=== PATIENT | male | born 1985 | race American Indian/Alaskan Native ===

== ENCOUNTER 2017-07-21 16:06 | Emergency (ER) | payer OTHER ==
[2017-07-21 16:26] VITALS: RESP 18; TEMP 98.6
[2017-07-21] MEDS ORDERED: Morphine 2 mg/ml ISec IVP STA (16:28)
[2017-07-21] MEDS ORDERED: TDAP Vaccine 0.5 mL Syr IM ONE (16:29)
[2017-07-21] MEDS ORDERED: Sodium Chloride 0.9% 1,000 ML IV STA (16:29)
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
[2017-07-21] MEDS ORDERED: ceFAZolin 1 gm in NS 1 GM/100 ML BAG IVPB ONE (16:45)
[2017-07-21] MEDS ORDERED: Iohexol 350 MG/100 ML VIAL ONE (16:46)
[2017-07-21 17:45] LABS: BASO # 0.04 K/mm3 (0.0-2.0); BASO % 0.4 % (0.0-3.0); EOS # 0.2 (0.0-0.7); EOS % 1.9 % (1.5-5.0); GRAN # 6.73 (1.4-6.5); GRAN % 69.7 % (50.0-68.0); HEMATOCRIT 46.5 % (42.0-52.0); LYMPH # 2.3 (1.2-3.4); LYMPH % 24.2 % (22.0-35.0); MEAN CORPUSCULAR HEMOGLOBIN 28.3 pg (25.0-35.0); MEAN CORPUSCULAR HGB CONC 33.3 g/dl (31.0-37.0); MEAN PLATELET VOLUME 12.9 fl (7.0-11.0); MONO # 0.4 (0.1-0.6); MONO % 3.8 % (1.0-6.0); WHITE BLOOD COUNT 9.7 10^3/ul (4.5-11.0)
[2017-07-21 17:49] LABS: ALB/GLOB RATIO 1.4 (1.1-1.8); ALKALINE PHOSPHATASE 70 U/L (38-126); ALT/SGPT 29 U/L (7-56); AST/SGOT 32 U/L (17-59); BILIRUBIN,TOTAL 0.7 mg/dL (0.2-1.3); BLOOD UREA NITROGEN 10 mg/dL (7-21); CALCIUM 9.6 mg/dL (8.4-10.5); CARBON DIOXIDE 27 mmol/L (21-33); CHLORIDE 105 mmol/L (98-107); GFR AFRICAN-AMERICAN > 60; GLUCOSE,RANDOM 91 mg/dL (70-110); POTASSIUM 3.8 mmol/L (3.6-5.0); SODIUM 143 mmol/L (132-148); TOTAL PROTEIN 7.8 g/dL (5.8-8.3)
[2017-07-21 17:57] LABS: INR 1.07 (0.93-1.08); PARTIAL THROMBOPLASTIN TIME 33.3 Seconds (25.1-36.5)
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
[2017-07-21 20:39] VITALS: BP 138/80; PULSE 85; O2SAT 98
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
== END 2017-07-21 20:42 | disposition home or self-care (01) ==
LOC: ED 16:06
DX: S81.811A Laceration without foreign body, right lower leg, initial encounter (principal); X99.8XXA Assault by other sharp object, initial encounter; Y92.89 Other specified places as the place of occurrence of the external cause
CPT/HCPCS: 12002; 71010; 73590; 73701; 80053; 80320; 85025; 85610; 85730; 90471; 90715; 96365; 96375; 99283; J0690; J2270; J7040; Q9967

== ENCOUNTER 2017-07-31 14:13 | Emergency (ER) | payer OTHER ==
[2017-07-31 14:46] VITALS: BP 136/83; PULSE 90; RESP 17; TEMP 97.8; O2SAT 100
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
== END 2017-07-31 16:11 | disposition home or self-care (01) ==
LOC: ED 14:13
DX: Z48.02 Encounter for removal of sutures (principal)

== ENCOUNTER 2017-12-31 18:56 | Emergency (ER) | payer OTHER ==
[2017-12-31 19:43] VITALS: RESP 18; TEMP 98.3
[2017-12-31] MEDS ORDERED: Penicillin G Benzathine 2.4 Mill Unit/4 ml Syr IM ONE (20:12)
[2017-12-31] MEDS ORDERED: cefTRIAXone (Rocephin) 250 mg Inj IM STA (20:12)
--- NOTE | 2017-12-31 20:20 | ED PDOC ---
Arrival/HPI <Royer Land - Last Filed: 01/01/18 01:56> - General Historian: Patient - History of Present Illness Time/Duration: Prior to Arrival Symptom Onset: Gradual Symptom Course: Unchanged <Jigar Jack - Last Filed: 01/01/18 02:22> - General Chief Complaint: Male Genitourinary Time Seen by Provider: 12/31/17 19:17 - History of Present Illness Narrative History of Present Illness (Text): 12/31/17 21:13 Patient is a 32 M with history of asthma presents with complaints of dysuria, penile abrasions, and sore throat. Patient endorses he had unprotected sex and was then disclosed to him after that she tested positive for chlamydia, gonorrhea, and trichimonas vaginitis. Denies penile discharge, fevers, chills, groin lymphadenopathy, hematuria, bleeding sores. (Jigar Jack) Past Medical History - Provider Review Nursing Documentation Reviewed: Yes - Infectious Disease Hx of Infectious Diseases: None - Cardiac Hx Cardiac Disorders: No - Pulmonary Hx Respiratory Disorders: Yes Hx Asthma: Yes - Neurological Hx Neurological Disorder: No - HEENT Hx HEENT Disorder: No - Renal Hx Renal Disorder: No - Endocrine/Metabolic Hx Endocrine Disorders: No - Hematological/Oncological Hx Blood Disorders: No - Integumentary Hx Dermatological Disorder: No - Musculoskeletal/Rheumatological Hx Musculoskeletal Disorders: No - Gastrointestinal Hx Gastrointestinal Disorders: No - Genitourinary/Gynecological Hx Genitourinary Disorders: No - Psychiatric Hx Psychophysiologic Disorder: No Hx Substance Use: No - Anesthesia Hx Anesthesia: No <Jigar Jack - Last Filed: 01/01/18 02:22> Family/Social History - Physician Review Nursing Documentation Reviewed: Yes Family/Social History: Other (non-contributory) Smoking Status: Light Smoker < 10 Cigarettes Daily Hx Alcohol Use: No Hx Substance Use: No <Jigar Jack - Last Filed: 01/01/18 02:22> Allergies/Home Meds <Royer Land - Last Filed: 01/01/18 01:56> <Jigar Jack - Last Filed: 01/01/18 02:22> Allergies/Adverse Reactions: Allergies shellfish derived Adverse Reaction (Verified 12/31/17 19:45) SWELLING Review of Systems - Physician Review All systems were reviewed & negative as marked: Yes - Review of Systems Constitutional: Normal. absent: Fevers Respiratory: Normal. absent: SOB, Cough Cardiovascular: Normal. absent: Chest Pain, Palpitations Gastrointestinal: Nausea. absent: Abdominal Pain, Diarrhea, Vomiting Genitourinary Male: Dysuria. absent: Normal Musculoskeletal: Normal. absent: Arthralgias, Back Pain Skin: Skin Lesions (penile (shaft)) Neurological: Normal. absent: Headache, Dizziness Endocrine: Normal Hemo/Lymphatic: Normal Psychiatric: Normal <Jigar Jack - Last Filed: 01/01/18 02:22> Physical Exam Vital Signs Reviewed: Yes Temperature: Afebrile Blood Pressure: Normal Pulse: Regular Respiratory Rate: Normal Appearance: Positive for: Well-Appearing, Non-Toxic, Comfortable Pain Distress: None Mental Status: Positive for: Alert and Oriented X 3 - Systems Exam Head: Present: Atraumatic, Normocephalic Pupils: Present: PERRL Extroacular Muscles: Present: EOMI Conjunctiva: Present: Normal Mouth: Present: Moist Mucous Membranes Pharnyx: Present: ERYTHEMA, EXUDATE. No: Uvular Deviation Neck: Present: Normal Range of Motion Respiratory/Chest: Present: Clear to Auscultation. No: Respiratory Distress, Wheezes, Decreased Breath Sounds, Rhonchi Cardiovascular: Present: Regular Rate and Rhythm, Normal S1, S2 Abdomen: No: Tenderness Genitourinary Male: Present: Lesions (2 on shaft of penis). No: Normal External Genitalia, Penile Discharge, Testicle Tenderness, Penile Swelling, Erythema, Testicle Swelling Upper Extremity: Present: Normal Inspection, Edema Lower Extremity: Present: Normal Inspection. No: Edema Neurological: Present: GCS=15, CN II-XII Intact, Speech Normal Skin: Present: Warm, Normal Color Psychiatric: Present: Alert, Oriented x 3, Normal Insight, Normal Concentration <Jigar Jack - Last Filed: 01/01/18 02:22> Vital Signs Temp Pulse Resp BP Pulse Ox 12/31/17 21:10 75 18 120/68 98 12/31/17 19:38 98.3 F 81 18 119/65 97 Medical Decision Making - Lab Interpretations I have reviewed the lab results: Yes <Royer Land - Last Filed: 01/01/18:56> <Jigar Jack. - Last Filed: 01/01/18 02:22> ED Course and Treatment: Patient Seen With Resident: In agreement with resident note, which includes further HPI details. Patient was seen and evaluated with resident, came up with plan and treatment together. 32 year old male presents complaining of dysuria, penile abrasions, and sore throat. Patient admits to having unprotected sexual intercourse Plan: -- Labs -- Bicllin L-A Inj, Flagyl, Rocephin, Zithromax -- Rapid Plasma Reagin (Royer Land) 12/31/17 20:21 Ceftriaxone, Azithromycin, Penicillin, Flagyl for Chlamydia, Gonorrhea, Syphillis, Trichomonas Syphillis, Gonorrhea/Chlamydia test -Patient warned regarding using flagyl and alcohol consumption. -Patient discharged with prescription for flagyl (Jigar Jack) - Medication Orders Current Medication Orders: Discontinued Medications Azithromycin (Zithromax) 1,000 mg PO STAT STA PRN Reason: Protocol Stop: 12/31/17 20:13 Last Admin: 12/31/17 20:50 Dose: 1,000 mg Ceftriaxone Sodium (Rocephin) 250 mg IM STAT STA PRN Reason: Protocol Stop: 12/31/17 20:13 Last Admin: 12/31/17 20:49 Dose: 250 mg IM Administration Charges Document 12/31/17 20:49 JOL (Rec: 12/31/17 20:50 [facility] [id number] Injection Site MAR Injection Site Left Gluteus Ruy Charges for Administration # of IM Administrations 1 Metronidazole (Flagyl) 500 mg PO STAT STA PRN Reason: Protocol Stop: 12/31/17 20:13 Last Admin: 12/31/17 20:49 Dose: 500 mg Penicillin G Benzathine (Bicillin L-A Inj) 2,400,000 units IM ONCE ONE PRN Reason: Protocol Stop: 12/31/17 20:13 Last Admin: 12/31/17 20:49 Dose: 2,400,000 units IM Administration Charges Document 12/31/17 20:49 JOL (Rec: 12/31/17 20:49 [facility] [id number]) Injection Site MAR Injection Site Right Gluteus Ruy Charges for Administration # of IM Administrations 1 - Scribe Statement The provider has reviewed the documentation as recorded by the Scribe <Royer Land - Last Filed: 01/01/18 01:56> <Jigar Jack - Last Filed: 01/01/18 02:22> - Scribe Statement Kimmy Crespo Provider Scribe Attestation: All medical record entries made by the Scribe were at my direction and personally dictated by me. I have reviewed the chart and agree that the record accurately reflects my personal performance of the history, physical exam, medical decision making, and the department course for this patient. I have also personally directed, reviewed, and agree with the discharge instructions and disposition. (Royer Land) Disposition/Present on Arrival <Roeyr Land - Last Filed: 01/01/18 01:56> - Present on Arrival Any Indicators Present on Arrival: No History of DVT/PE: No History of Uncontrolled Diabetes: No Urinary Catheter: No History of Decub. Ulcer: No History Surgical Site Infection Following: None - Disposition Have Diagnosis and Disposition been Completed?: Yes Disposition Time: 20:50 Patient Plan: Discharge <Jigar Jack - Last Filed: 01/01/18 02:22> - Disposition Diagnosis: Chlamydia, Gonorrhea, Trichomonas contact Disposition: HOME/ ROUTINE Condition: GOOD Discharge Instructions (ExitCare): Sexually-Transmitted Diseases (DC) Additional Instructions: Mr. Clemens thank you for letting us take care of you today. Your provider was Dr. Land. The emergency medical care you received today was directed at your acute symptoms. If you were prescribed any medication, please fill it and take as directed. It may take several days for your symptoms to resolve. Return to the Emergency Department if your symptoms worsen, do not improve, or if you have any other problems. Please contact your doctor or call one of the physicians/clinics you have been referred to that are listed on the Patient Visit Information form that is included in your discharge packet. Bring any paperwork you were given at discharge with you along with any medications you are taking to your follow up visit. Our treatment cannot replace ongoing medical care by a primary care provider (PCP) outside of the emergency department. Thank you for allowing the [facility] team to be part of your care today. If you had an X-Ray or CT scan: A Radiologist will review the ED reading if any change in treatment is needed we will contact you. If you had a blood, urine, or wound culture: It will take several days for the results, if any change in treatment is needed we will contact you. If you had an STI test: It will take 48 hours for the results. Please call after 1 week if you have not heard back. Prescriptions: Metronidazole [Flagyl] 500 mg PO BID #13 tablet Referrals: Kirit Vance, [Primary Care Provider] - Follow up with primary Forms: [employer] (Frisian)
[2017-12-31] MEDS ORDERED: Lidocaine 1% Inj (20ml) ONE (20:36)
[2017-12-31 21:25] VITALS: BP 120/68; PULSE 75; O2SAT 98
== END 2017-12-31 21:10 | disposition home or self-care (01) ==
LOC: ED 18:56
DX: Z20.2 Contact with and (suspected) exposure to infections with a predominantly sexual mode of transmission (principal); A74.9 Chlamydial infection, unspecified; A54.9 Gonococcal infection, unspecified
CPT/HCPCS: 86592; 96372; 99284; J0561; J0696